=== PATIENT | male | born 1960 | race Caucasian/White ===

== ENCOUNTER 2020-12-26 21:53 | Emergency (ER) | payer BC ==
[2020-12-26] MEDS ORDERED: Ondansetron 4 MG Tab.DIS PO ONE (22:14)
[2020-12-26] MEDS ORDERED: Meclizine 25 MG Tab PO ONE (22:15)
--- NOTE | 2020-12-26 23:23 | CRLCT ---
For Patients: As a result of the Century Cures Act, medical imaging exams and procedure reports are released immediately into your electronic medical record. You may view this report before your referring provider. If you have questions, please contact your health care provider. INDICATION: Vertigo TECHNIQUE: CT Head without i.v. contrast. Coronal and sagittal reformats were obtained. COMPARISON: None FINDINGS: CSF space: The ventricles are normal for age. Brain: No evidence of mass, acute infarction or hemorrhage is seen. No mass-effect or midline shift is seen. The brain parenchyma is otherwise normal in appearance with preservation of the castaneda-white matter junction. Calvarium: The visualized paranasal sinuses are well aerated. Retention cysts or polyps are partially seen in the maxillary sinuses. The mastoid air cells are clear. The visualized orbits are grossly unremarkable. The calvarium is unremarkable in appearance with no fractures identified. IMPRESSION: 1. No evidence of acute infarction, intracranial hemorrhage, or mass-effect seen. Please note that all CT scans at this facility use dose modulation, iterative reconstruction, and/or weight-based dosing when appropriate to reduce radiation dose to as low as reasonably achievable. Dictated by: Dre Garrido MD @ 12/26/2020 23:21:45 (Electronically Signed)
--- NOTE | 2020-12-26 23:55 | EDM.PDOC ---
ED HPI GENERAL MEDICAL PROBLEM - General Chief Complaint: Neurological Problem Stated Complaint: DIZZY AND VOMITING Time Seen by Provider: 12/26/20 22:25 Source of Information: Reports: Patient, Family History Limitations: Reports: No Limitations - History of Present Illness INITIAL COMMENTS - FREE TEXT/NARRATIVE: 60-year-old male who has had about 9 hours of vertigo, intermittent nausea and vomiting and generalized malaise. No visual complaints, peripheral weakness, headache, fever or chills. Denies shortness of breath or chest pain. Mostly is concerned about persistent vertigo with nausea and vomiting especially with movement. He has had this in the past but not nearly as pronounced. Onset: Sudden (Started somewhat suddenly about 9 hours ago) Associated Symptoms: Reports: Malaise, Nausea/Vomiting. Denies: Confusion, Chest Pain, Cough, Fever/Chills, Headaches, Loss of Appetite, Shortness of Breath - Related Data Allergies Allergy/AdvReac Type Severity Reaction Status Date / Time No Known Allergies Allergy Verified 12/26/20 22:28 Home Meds: Home Meds *Lipitor 0 mg PO BEDTIME 12/26/20 [History] Past Medical History HEENT History: Reports: Impaired Vision Cardiovascular History: Reports: High Cholesterol Musculoskeletal History: Reports: Fracture Social & Family History - Tobacco Use Tobacco Use Status *Q: Never Tobacco User - Caffeine Use Caffeine Use: Reports: Coffee - Recreational Drug Use Recreational Drug Use: No ED ROS GENERAL - Review of Systems Review Of Systems: See Below Constitutional: Reports: Malaise. Denies: Fever, Chills HEENT: Denies: Throat Pain Respiratory: Denies: Shortness of Breath, Cough Cardiovascular: Denies: Chest Pain, Palpitations GI/Abdominal: Reports: Diarrhea (Had some diarrhea earlier today), Nausea, Vomiting. Denies: Abdominal Pain : Reports: No Symptoms Musculoskeletal: Reports: No Symptoms Neurological: Reports: Dizziness, Other (Vertigo). Denies: Headache Psychiatric: Reports: No Symptoms ED EXAM, NEURO - Physical Exam Exam: See Below Exam Limited By: No Limitations General Appearance: Alert, No Apparent Distress (Looks uncomfortable but not distressed) Eye Exam: Bilateral Eye: Other (Slight nystagmus when looking to the right, otherwise negative) Ears: Normal TMs Head Exam: Atraumatic Neck: Supple, Non-Tender Respiratory/Chest: Lungs Clear Cardiovascular: Regular Rate, Rhythm Neurological: Alert, No Motor/Sensory Deficits, Oriented x 3, Other (Negative Romberg, no pronator drift) Extremities: Normal Inspection Psychiatric: Normal Affect, Normal Mood Skin Exam: Warm, Dry Course - Vital Signs Last Recorded V/S: Last Vital Signs Temp 96.8 F L 12/26/20 22:33 Pulse 63 12/26/20 22:38 Resp 14 12/26/20 22:38 BP 174/73 H 12/26/20 22:38 Pulse Ox 93 L 12/26/20 22:38 - Orders/Labs/Meds Meds: Medications Discontinued Medications Generic Name Dose Route Start Last Admin Trade Name Ralf PRN Reason Stop Dose Admin Meclizine HCl 25 mg 12/26/20 22:15 12/26/20 22:38 Meclizine 25 Mg Tab PO 12/26/20 22:16 25 mg ONETIME ONE Administration Ondansetron HCl 4 mg 12/26/20 22:14 12/26/20 22:38 Ondansetron 4 Mg Tab.Dis PO 12/26/20 22:15 4 mg ONETIME ONE Administration - Re-Assessments/Exams Free Text/Narrative Re-Assessment/Exam: 12/27/20 02:03 Patient was given 4 mg of sublingual Zofran and 25 mg of meclizine, then CT of the head was ordered. This was completely negative. Patient had 1 more episode of emesis while in the scanner, but then started to improve. He was feeling quite a bit better on discharge, was discharged with 5 additional doses of Zofran and meclizine. If he does not have significant improvement in 24 to 48 hours, repeat CT scan or MRI looking for cerebellar ischemic stroke may be worthwhile. He will can return anytime sooner if worsening. Departure - Departure Time of Disposition: 00:14 Disposition: Home, Self-Care 01 Clinical Impression: Vertigo Nausea and vomiting Qualifiers: Vomiting type: unspecified Vomiting Intractability: non-intractable Qualified Code(s): R11.2 - Nausea with vomiting, unspecified - Discharge Information Instructions: Vertigo, [id number] Referrals: PCP,None [Primary Care Provider] - Forms: ED Department Discharge Care Plan Goals: Rest tonight, stay hydrated, and increase activity as tolerated. Use meclizine and Zofran for symptoms as prescribed and consider rechecking in 2 to 3 days if not improving satisfactorily. Return anytime if worsening such as pain or fever. Sepsis Event Note (ED) - Evaluation Sepsis Screening Result: No Definite Risk - Focused Exam Vital Signs: Vital Signs Temp Pulse Resp BP Pulse Ox 12/26/20 22:38 63 14 174/73 H 93 L 12/26/20 22:33 96.8 F L 66 16 172/79 H 94 L 12/26/20 22:10 96.8 F L 66 16 172/79 H 94 L
== END 2020-12-27 00:14 | disposition home or self-care (01) ==
LOC: JP.ED 21:53
DX: R42 Dizziness and giddiness (principal); R11.2 Nausea with vomiting, unspecified; E78.00 Pure hypercholesterolemia, unspecified; Z79.899 Other long term (current) drug therapy
CPT/HCPCS: 70450; 99284; A9270